=== PATIENT | male | born 1990 | race African-American/Black ===

== ENCOUNTER 2016-09-28 21:14 | Emergency (ER) | payer OTHER ==
[~2016-09-28] VITALS: Ht 172.7 cm; Wt 67.7 kg
[~2016-09-28 21:14] MED LIST: NO HOME MEDICATIONS
[2016-09-28 23:55] VITALS: BP 132/72; PULSE 86; TEMP 101.2
[2016-10-01] MEDS ORDERED: AMOXICILLIN 50500 MG PO (03:26)
== END 2016-09-29 | disposition home or self-care (01) ==
LOC: COL.ER 21:14
DX: R50.9 Fever, unspecified (principal); J98.9 Respiratory disorder, unspecified; F17.210 Nicotine dependence, cigarettes, uncomplicated